=== PATIENT | female | born 1960 ===

== ENCOUNTER 2016-10-08 06:29 | Day surgery (SDC) | payer MEDICAID ==
[2016-10-08 07:20] VITALS: BMI 30.6
[2016-10-08 07:27] VITALS: O2SAT 100
[2016-10-08] MEDS ORDERED: Lactated Ringer's 500 ML IV ONE (08:00)
[2016-10-08] MEDS ORDERED: Midazolam 2 MG/2 ML VIAL ONE (08:15)
[2016-10-08] MEDS ORDERED: Propofol 10 mg/ml Inj (20 ML) ONE (08:15)
[2016-10-08 08:44] VITALS: TEMP 97.3
[2016-10-08 09:28] VITALS: BP 116/70; PULSE 60; RESP 15
== END 2016-10-08 09:25 | disposition home or self-care (01) ==
LOC: C.ENDO 06:29
PROVIDERS: ATTEND Internal Medicine Gastroenterology
DX: D12.0 Benign neoplasm of cecum (principal); D12.2 Benign neoplasm of ascending colon; K64.8 Other hemorrhoids; K57.30 Diverticulosis of large intestine without perforation or abscess without bleeding; Z86.010 Personal history of colon polyps; R10.13 Epigastric pain; K44.9 Diaphragmatic hernia without obstruction or gangrene; K31.9 Disease of stomach and duodenum, unspecified
CPT/HCPCS: 43239; 45380; 88305; J2250; J2704; J7120

== ENCOUNTER 2017-01-03 13:25 | Emergency (ER) | payer MEDICAID ==
[2017-01-03 13:25] VITALS: BMI 30.6
[2017-01-03 13:39] VITALS: RESP 16; TEMP 97.5; O2SAT 98
[2017-01-03 14:04] LABS: SQUAMOUS EPITHIAL 1 /hpf (0-5); URINE BILIRUBIN NEGATIVE (NEGATIVE); URINE BLOOD NEGATIVE (NEGATIVE); URINE CLARITY Clear (Clear); URINE COLOR Straw (YELLOW); URINE GLUCOSE (UA) NORMAL (Normal); URINE LEUKOCYTE ESTERASE NEG Leu/uL (Negative); URINE NITRATE NEGATIVE (NEGATIVE); URINE PROTEIN NEGATIVE (NEGATIVE); URINE UROBILINOGEN NORMAL mg/dL (0.2-1.0)
--- NOTE | 2017-01-03 14:37 | C.PDOC ---
History Of Present Illness 56 y/o female presents to the ED with complaints of irritation and swelling to left lower eyelid. Pt denies discharge from the area, decrease in vision, or foreign body. Doesn't wear contacts or glasses. Pt also complaining of urinary frequency and dysuria and wants to be evaluated for UTI. Denies fever, abdominal pain, back pain, vomiting or any other complaints. Time Seen by Provider: 01/03/17 13:56 Chief Complaint (Nursing): Eye Problem History Per: Patient History/Exam Limitations: no limitations Onset/Duration Of Symptoms: Days Current Symptoms Are (Timing): Still Present Injury To Eye?: No Severity: Mild Wears Contact Lens?: No Associated Symptoms: denies: Decreased Vision, FB Sensation, Discharge From Eye Recent travel outside of the [place]: No Past Medical History Reviewed: Historical Data, Nursing Documentation, Vital Signs Vital Signs: Last Vital Signs Temp 97.5 F L 01/03/17 13:35 Pulse 88 01/03/17 15:00 Resp 16 01/03/17 15:00 BP 136/85 01/03/17 15:00 Pulse Ox 98 01/03/17 15:06 - Medical History PMH: Anxiety ("NERVES"), Arthritis (KNEES), Asthma, Bronchitis, COPD (MILD), Diabetes, Diverticulitis, HTN, Hypercholesterolemia, Hyperlipidemia Surgical History: Endoscopy Family History: States: Unknown Family Hx, Hypertension - Social History Hx Tobacco Use: No Hx Alcohol Use: No Hx Substance Use: No - Immunization History Hx Tetanus Toxoid Vaccination: No Hx Influenza Vaccination: No Hx Pneumococcal Vaccination: No Review Of Systems Except As Marked, All Systems Reviewed And Found Negative. Constitutional: Negative for: Fever, Chills Eyes: Positive for: Eyelid Inflammation (left lower), Other (no discharge). Negative for: Vision Change Gastrointestinal: Negative for: Vomiting, Abdominal Pain Genitourinary: Positive for: Dysuria, Frequency Musculoskeletal: Negative for: Back Pain Physical Exam - Physical Exam Appears: Non-toxic, No Acute Distress Skin: Warm, Dry, No Rash Head: Atraumatic, Normacephalic Eye(s): bilateral: PERRL, EOMI, left: Other (Let eye mildly injected, stye noted to left lower eyelid) Ear(s): Bilateral: Normal Nose: Normal Chest: Symmetrical Cardiovascular: Rhythm Regular, No Murmur Respiratory: Normal Breath Sounds, No Rales, No Rhonchi, No Wheezing Gastrointestinal/Abdominal: Normal Exam, Soft, No Tenderness Back: Normal Inspection, No CVA Tenderness Extremity: Normal ROM Extremity: Bilateral: Atraumatic Neurological/Psych: Oriented x3, Normal Speech, Normal Cognition ED Course And Treatment O2 Sat by Pulse Oximetry: 98 (room air) Pulse Ox Interpretation: Normal Medical Decision Making Medical Decision Makin yo F c/o L lower eye lid swelling and irritation x 1 day, also reports of urinary frequency and dysuria. Plan: - FS - UA - Urine cx UA is (-), urine cx sent. FS 88. Pt given Rx tobramycin opth oint, was advised to f/u with pmd in 1-2 days without fail for re-evaluation, instructed to return to the ER at any time for any new or worsening symptoms. Pt verbalize understanding of instructions, given the opportunity to ask any questions. Disposition - Disposition Disposition: HOME/ ROUTINE Disposition Time: 14:35 Condition: STABLE Prescriptions: Tobramycin 0.3% [Tobrex 0.3% Ophth Oint] 3.5 appl OS BID #1 tube Instructions: Stye (ED), Dysuria (ED) Forms: [employer] Print Language: DIVEHI - Clinical Impression Clinical Impression: Stye, Urinary frequency - PA / MEDICAL ASSISTANT PRN / Resident Statement MD/DO has reviewed & agrees with the documentation as recorded. - Scribe Statement The provider has reviewed the documentation as recorded by the Scribe Garfield Lawrence All medical record entries made by the Scribe were at my direction and personally dictated by me. I have reviewed the chart and agree that the record accurately reflects my personal performance of the history, physical exam, medical decision making, and the department course for this patient. I have also personally directed, reviewed, and agree with the discharge instructions and disposition.
[2017-01-03 15:00] VITALS: BP 136/85; PULSE 88
== END 2017-01-03 15:00 | disposition home or self-care (01) ==
LOC: C.ER 13:25
DX: H00.015 Hordeolum externum left lower eyelid (principal); R35.0 Frequency of micturition

== ENCOUNTER 2017-07-05 10:07 | Emergency (ER) | payer MEDICAID ==
[2017-07-05 10:13] VITALS: BMI 31.8
[2017-07-05 10:17] VITALS: BP 138/83; PULSE 69; RESP 18; TEMP 97.8; O2SAT 96
[2017-07-05 10:47] LABS: SQUAMOUS EPITHIAL 1 /hpf (0-5); URINE BILIRUBIN NEGATIVE (NEGATIVE); URINE BLOOD NEGATIVE (NEGATIVE); URINE CLARITY Clear (Clear); URINE COLOR Yellow (YELLOW); URINE GLUCOSE (UA) NORMAL (Normal); URINE LEUKOCYTE ESTERASE NEG Leu/uL (Negative); URINE NITRATE NEGATIVE (NEGATIVE); URINE PROTEIN NEGATIVE (NEGATIVE); URINE UROBILINOGEN NORMAL mg/dL (0.2-1.0)
--- NOTE | 2017-07-05 11:52 | C.PDOC ---
Time Seen by Provider: 07/05/17 10:51 Chief Complaint (Nursing): Female Genitourinary History Per: Patient Onset/Duration Of Symptoms: Days (about 1 week) Current Symptoms Are (Timing): Still Present Severity: Moderate Quality Of Discomfort: Burning Associated Symptoms: Urinary Symptoms Alleviating Factors: None Additional History Per: Prior Records Abnormal Vaginal Bleeding: No Past Medical History Reviewed: Historical Data, Nursing Documentation, Vital Signs Vital Signs: Last Vital Signs Temp 97.8 F 07/05/17 10:11 Pulse 69 07/05/17 10:11 Resp 18 07/05/17 10:11 BP 138/83 07/05/17 10:11 Pulse Ox 96 07/05/17 10:11 - Medical History PMH: Arthritis (KNEES), Asthma, Bronchitis, COPD (MILD), Diabetes, Diverticulitis, HTN, Hypercholesterolemia, Hyperlipidemia Comment Only: Anxiety ("NERVES") Surgical History: Endoscopy Family History: States: Unknown Family Hx, Hypertension - Social History Hx Tobacco Use: No Hx Alcohol Use: No Hx Substance Use: No - Immunization History Hx Tetanus Toxoid Vaccination: No Hx Influenza Vaccination: Yes Hx Pneumococcal Vaccination: No Review Of Systems Except As Marked, All Systems Reviewed And Found Negative. Constitutional: Negative for: Fever, Weakness Cardiovascular: Negative for: Chest Pain Respiratory: Negative for: Shortness of Breath Gastrointestinal: Negative for: Vomiting Genitourinary: Positive for: Dysuria, Frequency, Vaginal Discharge, Pelvic Pain. Negative for: Vaginal Bleeding Musculoskeletal: Negative for: Neck Pain Skin: Negative for: Rash Neurological: Negative for: Weakness, Numbness Physical Exam - Physical Exam Appears: Non-toxic, No Acute Distress Skin: Normal Color, Warm, Dry, No Rash Head: Atraumatic, Normacephalic Eye(s): bilateral: Normal Inspection, PERRL, EOMI Neck: Normal ROM, Supple Cardiovascular: Rhythm Regular Respiratory: Normal Breath Sounds, No Accessory Muscle Use Gastrointestinal/Abdominal: Soft, Tenderness (suprapubic), No Guarding, No Rebound Back: No CVA Tenderness Pelvic: No Vaginal Bleeding, No Vaginal Discharge, Cervical Motion Tenderness ( mild), Other (Cervix slightly friable) Extremity: Normal ROM Neurological/Psych: Oriented x3, Normal Motor, Normal Sensation ED Course And Treatment - Laboratory Results Interpretation Of Abnormal: Urinalysis WNL. O2 Sat by Pulse Oximetry: 96 Pulse Ox Interpretation: Normal Medical Decision Making Medical Decision Making: Pt is allergic to Penicillins, can not give Rocephin. 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 Disposition Counseled Patient/Family Regarding: Studies Performed, Diagnosis, Need For Followup, Rx Given - Disposition Referrals: Anil Sun MD [Staff Provider] - Disposition: HOME/ ROUTINE Disposition Time: 11:53 Condition: STABLE Additional Instructions: Follow up with your Biodiesel Plant Operations Engineer within 1 week for further evaluation and treatment. Return to the ER if you develop fever, vomiting, worsening of symptoms or if you have any other concerns. Prescriptions: Ciprofloxacin [Cipro] 1 tab PO BID #14 tab Instructions: Pelvic Inflammatory Disease (ED) Forms: [facility] [employer] (Malay) Print Language: CITIZEN OF [place] - Clinical Impression Clinical Impression: Pelvic pain in female, Urinary symptom or sign
== END 2017-07-05 12:00 | disposition home or self-care (01) ==
LOC: C.ER 10:07
DX: R10.2 Pelvic and perineal pain (principal)

== ENCOUNTER 2017-07-24 18:34 | Emergency (ER) | payer MEDICAID ==
[2017-07-24 18:34] VITALS: BMI 30.6
[2017-07-24 19:59] VITALS: BP 158/90; PULSE 87; RESP 16; TEMP 98.5; O2SAT 98
[2017-07-24] MEDS ORDERED: Albuterol 0.083% Inhal Sol (2.5 mg/3 mL) UD ONE (21:06)
[2017-07-24] MEDS: Albuterol 0.083% Inhal Sol (2.5 mg/3 mL) UD INH SCH ×2 (21:11→21:35)
--- NOTE | 2017-07-24 22:19 | C.PDOC ---
History Of Present Illness 57 year old female presents to the ED c/o intermittent episodes of cough, flu like symptoms for the past 2 weeks. Patient went to see her PMD who prescribed her some nebulizer solutions and cough medicine. Patient states that at night when she goes to sleep she get cough fits that makes her feel SOB. Patient denies fever, chills, nausea, vomit, diarrhea, sick contacts, recent travel. Time Seen by Provider: 07/24/17 20:30 Chief Complaint (Nursing): Cough, Cold, Congestion History Per: Patient History/Exam Limitations: no limitations Onset/Duration Of Symptoms: Days Current Symptoms Are (Timing): Still Present Location Of Pain: Throat Sick Contacts (Context): None Associated Symptoms: Fever, Cough, Myalgias Ear Symptoms: Bilateral: None Recent travel outside of the [place]: No Additional History Per: Patient Past Medical History Reviewed: Historical Data, Nursing Documentation, Vital Signs Vital Signs: Last Vital Signs Temp 98.5 F 07/24/17 19:56 Pulse 87 07/24/17 19:56 Resp 16 07/24/17 19:56 BP 158/90 H 07/24/17 19:56 Pulse Ox 98 07/24/17 22:29 - Medical History PMH: Arthritis (KNEES), Asthma, Bronchitis, COPD (MILD), Diabetes, Diverticulitis, HTN, Hypercholesterolemia, Hyperlipidemia Comment Only: Anxiety ("NERVES") Surgical History: Endoscopy Family History: States: Unknown Family Hx, Hypertension - Social History Hx Tobacco Use: No Hx Alcohol Use: No Hx Substance Use: No - Immunization History Hx Tetanus Toxoid Vaccination: No Hx Influenza Vaccination: Yes Hx Pneumococcal Vaccination: No Review Of Systems Constitutional: Positive for: Fever. Negative for: Chills ENT: Negative for: Nose Discharge, Throat Pain, Throat Swelling Cardiovascular: Negative for: Chest Pain Respiratory: Positive for: Cough, Shortness of Breath Gastrointestinal: Negative for: Nausea, Vomiting, Abdominal Pain Genitourinary: Negative for: Dysuria Musculoskeletal: Negative for: Back Pain Skin: Negative for: Rash Neurological: Negative for: Weakness, Numbness, Headache Physical Exam - Physical Exam Appears: Non-toxic, No Acute Distress Skin: Normal Color, Warm, Dry Head: Atraumatic, Normacephalic Eye(s): bilateral: Normal Inspection Ear(s): Bilateral: Normal Nose: No Discharge, No Deformity Oral Mucosa: Moist Neck: Normal ROM, Supple Chest: Symmetrical Cardiovascular: Rhythm Regular, No Murmur Respiratory: Decreased Breath Sounds (minimal), Wheezing (expiratory) Gastrointestinal/Abdominal: Soft, No Tenderness, No Guarding, No Rebound Extremity: Normal ROM, No Pedal Edema, No Calf Tenderness, No Deformity, No Swelling Neurological/Psych: Oriented x3, Normal Speech, Normal Cognition Gait: Steady ED Course And Treatment O2 Sat by Pulse Oximetry: 98 (On RA) Pulse Ox Interpretation: Normal - Radiology CXR: Viewed By Me, Read By Radiologist CXR Interpretation: Yes: Other (no changes from prior). No: No Acute Disease, Infiltrates Progress Note: Plan: -CXR. -Albuterol 2.5 mg INH. -Benadryl 50 mg PO. - Prednisone 60 mg PO. -Nebulizer treament. Patient is resting comfortably, and is in no acute distress. Patient was instructed to follow up with PMD in 1-2 days for further evaluation. Disposition Counseled Patient/Family Regarding: Diagnosis, Need For Followup, Rx Given - Disposition Referrals: Anil Sun MD [Staff Provider] - Disposition: HOME/ ROUTINE Disposition Time: 22:16 Condition: STABLE Additional Instructions: Increase PO fluids Take all meds as prescribed D/c phenergan /codeine for cough ( NO evelina ) Follow up with Dr Sun Continue albuterol nebs Return to ER if worse Prescriptions: Benzonatate [Tessalon Perles] 100 mg PO TID #20 sgl Cetirizine HCl [Zyrtec] 10 mg PO DAILY #20 capsule predniSONE [Prednisone] 40 mg PO DAILY #8 tab Instructions: Upper Respiratory Infection (ED) Forms: [employer] ([place] Citizen) Print Language: SLOVAK - Clinical Impression Clinical Impression: Upper respiratory infection - PA / TOOL POLISHER / Resident Statement MD/DO has reviewed & agrees with the documentation as recorded. - Scribe Statement The provider has reviewed the documentation as recorded by the Scribe Heath Murphy All medical record entries made by the Scribe were at my direction and personally dictated by me. I have reviewed the chart and agree that the record accurately reflects my personal performance of the history, physical exam, medical decision making, and the department course for this patient. I have also personally directed, reviewed, and agree with the discharge instructions and disposition.
--- NOTE | 2017-07-24 22:21 | C.PDOC ---
History Of Present Illness 57 year old female presents to the ED c/o intermittent episodes of cough, flu like symptoms for the past 2 weeks. Patient went to see her PMD who prescribed her some nebulizer solutions and cough medicine. Patient states that at night when she goes to sleep she get cough fits that makes her feel SOB. Patient denies fever, chills, nausea, vomit, diarrhea, sick contacts, recent travel. Time Seen by Provider: 07/24/17 20:30 Chief Complaint (Nursing): Cough, Cold, Congestion Past Medical History Vital Signs: Last Vital Signs Temp 98.5 F 07/24/17 19:56 Pulse 87 07/24/17 19:56 Resp 16 07/24/17 19:56 BP 158/90 H 07/24/17 19:56 Pulse Ox 98 07/24/17 19:56 - Medical History PMH: Arthritis (KNEES), Asthma, Bronchitis, COPD (MILD), Diabetes, Diverticulitis, HTN, Hypercholesterolemia, Hyperlipidemia Comment Only: Anxiety ("NERVES") Surgical History: Endoscopy Family History: States: Unknown Family Hx, Hypertension - Social History Hx Tobacco Use: No Hx Alcohol Use: No Hx Substance Use: No - Immunization History Hx Tetanus Toxoid Vaccination: No Hx Influenza Vaccination: Yes Hx Pneumococcal Vaccination: No ED Course And Treatment O2 Sat by Pulse Oximetry: 98 Disposition - Disposition Forms: [employer] (Welsh)
--- NOTE | 2017-07-25 08:39 | RAD ---
Chest x-ray two views History: Cough. Comparison: 07/05/2014 Findings: No focal infiltrate or effusion. Heart size within normal limits. Mammilated and elevated right hemidiaphragm. Impression: No focal infiltrate or effusion.
== END 2017-07-24 22:26 | disposition home or self-care (01) ==
LOC: C.ER 18:34
DX: J06.9 Acute upper respiratory infection, unspecified (principal)

== ENCOUNTER 2017-09-03 03:48 | Inpatient (IN) | payer MEDICAID, OTHER ==
[2017-09-03 03:49] VITALS: BMI 30.6
--- NOTE | 2017-09-03 04:59 | C.PDOC ---
History Of Present Illness 57 year old female presents to the ER stating that she feels like she has mice crawling all over her. Denies other complaints. Chief Complaint (Nursing): Psychiatric Evaluation History Per: Patient History/Exam Limitations: no limitations Onset/Duration Of Symptoms: Days Current Symptoms Are (Timing): Still Present Suicide/Self Injury Attempted (Context): None Involuntary Hold By: None Recent travel outside of the [place]: No Past Medical History Reviewed: Historical Data, Nursing Documentation, Vital Signs Vital Signs: Last Vital Signs Temp 97.9 F 09/03/17 04:00 Pulse 117 H 09/03/17 04:00 Resp 20 09/03/17 04:00 BP 191/89 H 09/03/17 04:00 Pulse Ox 96 09/03/17 06:13 - Medical History PMH: Arthritis (KNEES), Asthma, Bronchitis, COPD (MILD), Diabetes, Diverticulitis, HTN, Hypercholesterolemia, Hyperlipidemia Comment Only: Anxiety ("NERVES") Surgical History: Endoscopy Family History: States: Hypertension - Social History Hx Tobacco Use: No Hx Alcohol Use: No Hx Substance Use: No - Immunization History Hx Tetanus Toxoid Vaccination: No Hx Influenza Vaccination: Yes Hx Pneumococcal Vaccination: No Review Of Systems Constitutional: Negative for: Fever, Chills Cardiovascular: Negative for: Chest Pain, Palpitations Respiratory: Negative for: Cough, Shortness of Breath Gastrointestinal: Negative for: Nausea, Vomiting, Abdominal Pain, Diarrhea Physical Exam - Physical Exam Appears: Non-toxic, No Acute Distress Skin: Normal Color, Warm, Dry Head: Atraumatic, Normacephalic Eye(s): bilateral: Normal Inspection Oral Mucosa: Moist Chest: Symmetrical, No Tenderness Cardiovascular: Rhythm Regular Respiratory: Normal Breath Sounds, No Rales, No Rhonchi, No Wheezing Gastrointestinal/Abdominal: Soft, No Tenderness Neurological/Psych: Oriented x3, Normal Speech ED Course And Treatment - Laboratory Results Result Diagrams: 09/03/17 05:01 09/03/17 05:01 O2 Sat by Pulse Oximetry: 96 (Room air) Pulse Ox Interpretation: Normal Progress Note: Repeat blood pressure is 154/72. Medical Decision Making Medical Decision Making: Blood work and urinalysis ordered. Xanax administered. Disposition Discussed With : Angelina Handy Doctor Will See Patient In The: Hospital Counseled Patient/Family Regarding: Diagnosis - Disposition Disposition: HOSPITALIZED Disposition Time: 06:14 Condition: STABLE Forms: [facility] ([place]ese) - POA Present On Arrival: None - Clinical Impression Clinical Impression: Schizophrenia, unspecified, Benzodiazepine withdrawal - Scribe Statement The provider has reviewed the documentation as recorded by the Scribwillie Hurt All medical record entries made by the Scribe were at my direction and personally dictated by me. I have reviewed the chart and agree that the record accurately reflects my personal performance of the history, physical exam, medical decision making, and the department course for this patient. I have also personally directed, reviewed, and agree with the discharge instructions and disposition.
[2017-09-03 05:06] LABS: BASO # 0.1 K/uL (0.0-0.2); BASO % 0.9 % (0.0-2.0); EOS # 0.1 K/uL (0.0-0.7); EOS % 0.9 % (0.0-4.0); HEMOGLOBIN 12.1 g/dL (11.0-16.0); LYMPH # 2.2 K/uL (1.0-4.3); LYMPH % 29.6 % (20.0-40.0); MEAN CELL VOLUME 85.4 fL (81.0-99.0); MEAN CORPUSCULAR HEMOGLOBIN 28.7 pg (27.0-31.0); MEAN CORPUSCULAR HGB CONC 33.7 g/dL (33.0-37.0); MONO # 0.7 K/uL (0.0-0.8); MONO % 9.4 % (0.0-10.0); NEUT # 4.4 K/uL (1.8-7.0); NEUT % 59.2 % (50.0-75.0); RBC 4.21 Mil/uL (3.80-5.20); RED CELL DISTRIBUTION WIDTH 13.8 % (11.5-14.5); WHITE BLOOD COUNT 7.4 K/uL (4.8-10.8)
[2017-09-03 05:25] LABS: ALB/GLOB RATIO 1.1 (1.0-2.1); ALBUMIN 4.2 g/dL (3.5-5.0); ALT/SGPT 55 U/L (9-52); AST/SGOT 37 U/L (14-36); BARBITURATES, UR NEGATIVE (NEGATIVE); BLOOD UREA NITROGEN 25 mg/dL (7-17); CALCIUM 9.3 mg/dl (8.6-10.4); GFR AFRICAN-AMERICAN > 60; GFR NON-AFRICAN AMERICAN > 60; OPIATES, UR NEGATIVE (NEGATIVE); PHENCYCLIDINE, UR NEGATIVE (NEGATIVE)
[2017-09-03 05:35] LABS: SQUAMOUS EPITHIAL 2 /hpf (0-5); URINE BACTERIA RARE (<OCC); URINE BILIRUBIN NEGATIVE (NEGATIVE); URINE BLOOD NEGATIVE (NEGATIVE); URINE CLARITY Hazy (Clear); URINE COLOR Yellow (YELLOW); URINE GLUCOSE (UA) NORMAL (Normal); URINE LEUKOCYTE ESTERASE NEG Leu/uL (Negative); URINE PROTEIN NEGATIVE (NEGATIVE); URINE UROBILINOGEN NORMAL mg/dL (0.2-1.0)
[2017-09-03] MEDS ORDERED: Potassium Chloride 20 mEq/15 ml LIQ UD PO STA (05:45)
[2017-09-03] MEDS ORDERED: Potassium Chloride 20 mEq ER Tab PO ONE (05:51)
[2017-09-03 06:29] LABS: BENZODIAZEPINES, UR POSITIVE (NEGATIVE)
--- NOTE | 2017-09-03 08:16 | PCM.BM ---
<Estephania Viramontes - Last Filed: 09/03/17 08:14> Treatment Plan Problems - Problems identified on initial assessmt Anxiety Date Initiated: 09/03/17 Time Initiated: 08:14 Assessment reference: NA Status: Active Auditory Hallucination Date Initiated: 09/03/17 Time Initiated: 08:14 Assessment reference: NA Status: Active Treatment assets and liabiliti Patient Assests: adapts well, ADL independent, physically healthy, negotiates basic needs Patient Liabilities: live alone (Lives with ), medical problems (Asthma, HTN, Dizziness) - Milieu Protocol Maintain good personal hygiene: daily Encourage regular showers, daily Remind patient to perform daily oral care, daily Assist patient to perform ADL's (Self) Maintain personal safety: every shift Educate patient to report safety concerns to staff, every shift Monitor environment for contraband/sharps Medication safety: Monitor for expected outcome, potential side effects: every shift, Assess barriers to learning: every shift, Assess readiness for medication education: every shift <Kasandra Corral - Last Filed: 09/06/17 11:01> - Diagnosis (1) Bipolar disorder, curr episode mixed, severe, with psychotic features Status: Acute Interventions: 09/06/17 11:01 * Assess/adjust medications daily and /or as needed * See patient on an individual basis 7x/week to assess level of manic behaviors and stability * Discuss risks, benefits, side effects and alternatives of medications * <Kelle Pisano - Last Filed: 09/06/17 11:06> Family Contact Family involvement: Famliy/SO not involved Family contact: Patient declines to allow family contact at present - Goals for Treatment Patient goals for treatment: "I want to go home." Discharge/Continuing Care - Education Needs Education Needs: Patient Medication, Patient Coping Skills - Discharge Discharge Criteria: Tolerates medication w/o severe side effects, Reduction of target symptoms Discharge to:: Home - Treatment Team Participation Discussed with Family/SO: No Was Patient/Family/SO present at Treatment Team Meeting: Yes
[2017-09-03] MEDS: Multiple Vitamins Tab PO SCH (10:40)
--- NOTE | 2017-09-03 10:41 | PCM.PSYCH ---
Initial Psychiatric Evaluation - Initial Psychiatric Evaluation Type of Admission: Voluntary Legal Status: Capacity Chief Complaint (in patient's own words): I was feeling anxious.' History of Present Illness and Precipitating Events: 57-year-old female, who lives at home with her , came to the ED on her own because she hasn't been able to sleep well lately, "not sleeping for 5-6 days". Patient appeared somewhat disorganized and internally preoccupied throughout the interview. She was responding to the internal stimuli and was smiling inappropriately during the interview. She reports that she has been on Xanax to help her sleep for an unknown period of time but states that they haven't been working lately. "I was not feeling good in the house;" I was not taking my pills (Xanax 2mg) for sleep;" They don't do nothing for my body no more;" I'm not sleeping so well;" I'm scared to be in the house alone;" I get like nervous; " Then I think too much;" I hear like somebody talking to you". She als reports [facility]H seeing shadows and apears paranoid and delusional during the interview. Patient reports racing thoughts, flight of ideas and poor sleep. She reports that she would frequently wake up in the middle of the night and start cooking because "I like to cook". Patient reports a decreased appetite, and poor concentration. Patient does not drink or use any illicit drugs, and did not specify whether she has any suicidal or homicidal ideation. Patient smiling inappropriately throughout history gathering. She denies any h/o inpatient psychiatric hospitalizations and denies any h/o follow up with a psychiatrist. PMH: None reported Current Medications: Active Medications Generic Name Dose Route Start Last Admin Trade Name Freq PRN Reason Stop Dose Admin Hydroxyzine HCl 25 mg 09/03/17 07:53 Atarax PO Q6H PRN Anxiety Multivitamins 1 tab 09/03/17 10:00 09/03/17 10:40 Hexavitamin PO Not Given DAILY LATANYA Past Psychiatric History - Past Psychiatric History Previous Treatment History: None Pertinent Medical Hx (Current Medical&Sleep Prob, Allergies): Allergies Allergy/AdvReac Type Severity Reaction Status Date / Time Penicillins Allergy Severe ANAPHYLAXIS Verified 09/03/17 04:05 Alprazolam [Xanax] 1 tab PO HS 11/08/15 Ergocalciferol (Vitamin D2) [Vitamin D2] 1 tab PO QWK 10/08/16 Losartan/Hydrochlorothiazide [Losartan-Hctz 50-12.5 mg Tab] 1 tab PO DAILY 10/08 Review of Systems - Review of Systems All systems: reviewed and no additional remarkable complaints except - Psychiatric Psychiatric: Anxiety, Auditory Hallucinations, Irritability, Mood Swings, Paranoia, Visual Hallucinations Mental Status Examination - Personal Presentation Personal Presentation: Looks stated age - Affect Affect: Broad, Blunted - Motor Activity Motor Activity: Psychomotor Agitation - Reliability in Providing Information Reliability in Providing Information: Poor, due to alteration in thoughts, Poor , due to altered mood - Speech Speech: Disorganized, Irrelevant - Mood Mood: Anxious - Formal Thought Process Formal Thought Process: Hallucinations, Delusions, Paranoia, Loosening of associations, Flight of ideas - Hallucinations/Delusions Hallucinations: Visual, Auditory Delusions: Persecution - Obsessions/Compulsions Obsessions: No Compulsions: No - Cognitive Functions Orientation: Person, Place, Situation, Time Sensorium: Alert Attention/Concentration: Attentive Abstract Thinking: [place] Estimate of Intelligence: Below average Judgement: Imparied, as evidence by: Poor judgement, Imparied, as evidence by: Lack of insight into illness - Risk Risk: Diminished functioning - Strength & Assets Inventory Strength & Assets Inventory: Family support DSM 5 DX - DSM 5 DSM 5 Diagnosis: Bipolar disorder mixed severe with psychotic features Sedative / Hypnotic use disorder severe - Recommended/Plan of Treatment Treatment Recommendations and Plan of Treatment: Bipolar disorder mixed severe with psychotic features -CBT -Psychoeducation -Supportive therapy, group therapy, individual therapy -Risperdal 0.5 mg by mouth twice a day -Cogentin 0.5 mg PO BID -Trazodone 50 mg by mouth daily at bedtime Sedative / Hypnotic use disorder severe -Psychoeducation -Supportive therapy, individual therapy -Ativan 1 mg PO Q 6hr prn -Use TX for abstinence - Smoking Cessation Smoking Cessation Initiated: No
[2017-09-03] MEDS: Divalproex 250 mg DR Tab PO SCH (17:32)
[2017-09-04] MEDS: Divalproex 250 mg DR Tab PO SCH ×2 (10:20→17:35)
[2017-09-04] MEDS: Multiple Vitamins Tab PO SCH (10:20)
--- NOTE | 2017-09-04 10:54 | PCM.PYCHPN ---
Psychiatric Progress Note - Psychiatric Progress Note Patient seen today, length of contact: 15 min Patient Chief Complaint: I was feeling anxious.' Problems Identified/Issues Discussed: Patient seen and evaluated, chart reviewed and discussed with the nurse. Patient remained disorganized and internally preoccupied. Although she reports improvement in her mood and requesting to go home, she still appears paranoid and delusional. She appears disheveled and remained isolated, and withdrawn. Patient is compliant with medications and denies any side effects. She need more time to stabilize. Support and psychoeducation given. Medication Change: Yes (start depakote) Medical Record Reviewed: Yes Mental Status Examination - Cognitive Function Orientation: Person, Place, Situation, Time Memory: Intact Attention: Poor Concentration: Poor Association: Loose Fund of Knowledge: Poor - Mood Mood: Anxious - Affect Affect: Broad, Blunted - Formal Thought Process Formal Thought Process: Hallucinations, Delusions, Paranoia, Loosening of associations, Flight of ideas - Suicidal Ideation Suicidal Ideation: No - Homicidal Ideation Homicidal Ideation: No Goal/Treatment Plan - Goal/Treatment Plan Need for Continued Stay: Severe depression anxiety, Severe functional impairment Progress Toward Problem(s) and Goals/Treatment Plan: Bipolar disorder mixed severe with psychotic features -CBT -Psychoeducation -Supportive therapy, group therapy, individual therapy -Risperdal 0.5 mg by mouth twice a day -Cogentin 0.5 mg PO BID -Trazodone 50 mg by mouth daily at bedtime -Depakote 250 mg PO BID Sedative / Hypnotic use disorder severe -Psychoeducation -Supportive therapy, individual therapy -Ativan 1 mg PO Q 6hr prn -Use PR for abstinence - Smoking Cessation Smoking Cessation Initiated: No
[2017-09-04] MEDS: Magnesium Hydroxide Susp 30 ml UD PO PRN ×2 (10:56→17:35)
[2017-09-05] MEDS: Divalproex 250 mg DR Tab PO SCH ×2 (09:53→17:23)
[2017-09-05] MEDS: Magnesium Hydroxide Susp 30 ml UD PO PRN (09:53)
[2017-09-05] MEDS: Multiple Vitamins Tab PO SCH (10:02)
--- NOTE | 2017-09-05 13:31 | PCM.PYCHPN ---
Psychiatric Progress Note - Psychiatric Progress Note Patient seen today, length of contact: 15 min Patient Chief Complaint: I was feeling anxious.' Problems Identified/Issues Discussed: Patient seen and evaluated, chart reviewed and discussed with the nurse. As per the staff patient appears less delusional and less paranoid, as compared to before. She appears more organized and reports improvement in her mood. However she still has poor insight about her condition and she is still asking why is she getting medications. She reports improvement in sleep and appetite. She remained disheveled and unkempt. Patient is compliant with medications and denies any side effects. She need more time to stabilize. Support and psychoeducation given. Medication Change: Yes (Increase Risperdal) Medical Record Reviewed: Yes Mental Status Examination - Cognitive Function Orientation: Person, Place, Situation, Time Memory: Intact Attention: Poor Concentration: Poor Association: Loose Fund of Knowledge: Poor - Mood Mood: Anxious - Affect Affect: Broad, Blunted - Formal Thought Process Formal Thought Process: Hallucinations, Delusions, Paranoia, Loosening of associations, Flight of ideas - Suicidal Ideation Suicidal Ideation: No - Homicidal Ideation Homicidal Ideation: No Goal/Treatment Plan - Goal/Treatment Plan Need for Continued Stay: Severe depression anxiety, Severe functional impairment Progress Toward Problem(s) and Goals/Treatment Plan: Bipolar disorder mixed severe with psychotic features -CBT -Psychoeducation -Supportive therapy, group therapy, individual therapy -Risperdal 01 mg by mouth twice a day -Cogentin 0.5 mg PO BID -Trazodone 50 mg by mouth daily at bedtime -Depakote 250 mg PO BID Sedative / Hypnotic use disorder severe -Psychoeducation -Supportive therapy, individual therapy -Ativan 1 mg PO Q 6hr prn -Use IN for abstinence - Smoking Cessation Smoking Cessation Initiated: No
--- NOTE | 2017-09-05 17:54 | CARD ---
APPROVED REPORT EKG Measurement Heart [id number] <Conclusion> Normal sinus rhythm Normal ECG
[2017-09-06] MEDS: Multiple Vitamins Tab PO SCH (09:51)
[2017-09-06] MEDS: Divalproex 250 mg DR Tab PO SCH ×2 (09:52→18:14)
[2017-09-06] MEDS ORDERED: Pneumococcal 23-Valent Vaccine IM ONE (10:00)
[2017-09-06] MEDS ORDERED: Influenza Vaccine 60 mcg/0.5 mL SYR (4YR UP) IM ONE (10:00)
--- NOTE | 2017-09-06 11:00 | PCM.PYCHPN ---
Psychiatric Progress Note - Psychiatric Progress Note Patient seen today, length of contact: 15 min Patient Chief Complaint: I was feeling anxious.' Problems Identified/Issues Discussed: Patient seen and evaluated, chart reviewed and discussed with the nurse. She appears more organized and reports improvement in her mood. As per the staff patient appears less delusional and less paranoid, as compared to before. However she still has poor insight about her condition and she is still asking why is she getting medications. She reports improvement in sleep and appetite. She remained disheveled and unkempt. Patient is compliant with medications and denies any side effects. She need more time to stabilize. Support and psychoeducation given. Medication Change: No Medical Record Reviewed: Yes Mental Status Examination - Cognitive Function Orientation: Person, Place, Situation, Time Memory: Intact Attention: WNL Concentration: Poor Association: Loose Fund of Knowledge: Poor - Mood Mood: Anxious - Affect Affect: Broad, Blunted - Formal Thought Process Formal Thought Process: Delusions, Paranoia, Loosening of associations - Suicidal Ideation Suicidal Ideation: No - Homicidal Ideation Homicidal Ideation: No Goal/Treatment Plan - Goal/Treatment Plan Need for Continued Stay: Severe depression anxiety, Severe functional impairment Progress Toward Problem(s) and Goals/Treatment Plan: Bipolar disorder mixed severe with psychotic features -CBT -Psychoeducation -Supportive therapy, group therapy, individual therapy -Risperdal 1 mg by mouth twice a day -Cogentin 0.5 mg PO BID -Trazodone 50 mg by mouth daily at bedtime -Depakote 250 mg PO BID Sedative / Hypnotic use disorder severe -Psychoeducation -Supportive therapy, individual therapy -Ativan 1 mg PO Q 6hr prn -Use NH for abstinence
[2017-09-07] MEDS: Multiple Vitamins Tab PO SCH (09:35)
[2017-09-07] MEDS: Divalproex 250 mg DR Tab PO SCH ×2 (09:35→17:34)
[2017-09-08 07:13] VITALS: O2SAT 100
[2017-09-08] MEDS: Divalproex 250 mg DR Tab PO SCH ×2 (09:17→18:44)
[2017-09-08] MEDS: Multiple Vitamins Tab PO SCH (09:17)
[2017-09-09] MEDS: Divalproex 250 mg DR Tab PO SCH ×2 (10:37→17:31)
[2017-09-09] MEDS: Multiple Vitamins Tab PO SCH (10:37)
--- NOTE | 2017-09-09 13:45 | PCM.PYCHPN ---
Psychiatric Progress Note - Psychiatric Progress Note Patient seen today, length of contact: 15 minutes Patient Chief Complaint: "I feel fine, I feel better" Problems Identified/Issues Discussed: The pt is seen, chart reviewed, case discussed with staff. Support given, CBT and MT used briefly. Patient states that she feels much better today. Denies any irritability, SI/HI, visual or auditory hallucinations. No other complaints are noted. She is improving slowly and needs more time. No SEs from medications, risks discussed. After care discussed. At the time of evaluation, patient was awake alert oriented 3, no delusions, no auditory or visual hallucinations, no suicidal ideations or homicidal ideations. Medical Problems: Hypertension Diagnostic Results: Reviewed DSM 5 Symptoms Update: Improving with treatment Medication Change: No Medical Record Reviewed: Yes Mental Status Examination - Cognitive Function Orientation: Person, Place, Situation, Time Memory: Intact Attention: WNL Concentration: WNL Association: WN Fund of Knowledge: [facility] Decription of patient's judgement and insights: Fair - Mood Mood: Depressed (Less than before) - Affect Affect: Other (Appropriate) - Speech Speech: Appropriate - Formal Thought Process Formal Thought Process: No Impairment Psychotic Thoughts and Behaviors: None reported - Suicidal Ideation Suicidal Ideation: No - Homicidal Ideation Homicidal Ideation: No Goal/Treatment Plan - Goal/Treatment Plan Need for Continued Stay: Remain at risks for inpatient hospitalization, Discharge may exacerbated symptoms, Severe functional impairment Progress Toward Problem(s) and Goals/Treatment Plan: Continue medications Support and psychoeducation daily Attend groups and activities daily Patient will go to [facility] for follow-up care after discharge from the hospital. Estimated Date of D/C: 09/11/17 - Smoking Cessation Smoking Cessation Initiated: No
[2017-09-09] MEDS: Magnesium Hydroxide Susp 30 ml UD PO PRN (17:33)
[2017-09-10] MEDS: Multiple Vitamins Tab PO SCH (09:57)
[2017-09-10] MEDS: Divalproex 250 mg DR Tab PO SCH ×2 (09:57→17:06)
[2017-09-10] MEDS ORDERED: Ergocalciferol 50,000 Intl Units Cap PO SCH (10:00)
--- NOTE | 2017-09-10 12:10 | PCM.PYCHPN ---
Psychiatric Progress Note - Psychiatric Progress Note Patient seen today, length of contact: 15 minutes Patient Chief Complaint: "I feel better today" Problems Identified/Issues Discussed: The pt is seen, chart reviewed, case discussed with staff. Support given, CBT and PR used briefly. Patient slept well last night. She states that she feels much better today. Denies any irritability, SI/HI, visual or auditory hallucinations. No other complaints are noted. No SEs from medications, risks discussed. After care discussed Medical Problems: Hypertension Diagnostic Results: Reviewed DSM 5 Symptoms Update: Improving with treatment Medication Change: No Medical Record Reviewed: Yes Mental Status Examination - Cognitive Function Orientation: Person, Place, Situation, Time Memory: Intact Attention: WNL Concentration: WNL Association: [facility] Fund of Knowledge: [facility] Decription of patient's judgement and insights: Fair - Mood Mood: Neutral - Affect Affect: Other (Appropriate) - Speech Speech: Appropriate - Formal Thought Process Formal Thought Process: No Impairment Psychotic Thoughts and Behaviors: None - Suicidal Ideation Suicidal Ideation: No - Homicidal Ideation Homicidal Ideation: No Goal/Treatment Plan - Goal/Treatment Plan Need for Continued Stay: Remain at risks for inpatient hospitalization, Discharge may exacerbated symptoms, Severe functional impairment Progress Toward Problem(s) and Goals/Treatment Plan: Continue medications Support and psychoeducation daily Attend groups and activities daily Patient will go to [facility] for follow-up care after discharge from the hospital Estimated Date of D/C: 09/11/17 ([facility]) - Smoking Cessation Smoking Cessation Initiated: No
[2017-09-11 06:29] VITALS: BP 130/65; PULSE 96; RESP 16; TEMP 98.1
[2017-09-11] MEDS: Multiple Vitamins Tab PO SCH (10:04)
[2017-09-11] MEDS: Divalproex 250 mg DR Tab PO SCH (10:53)
--- NOTE | 2017-09-11 13:58 | PCM.PYCHDC ---
Mental Status Examination - Mental Status Examination Orientation: Person, Place, Situation, Time Memory: Intact Mood: Neutral Affect: Other (Appropriate) Speech: Appropriate Attention: WNL Concentration: WNL Association: WNL Fund of Knowledge: WNL Formal Thought Process: No Impairment Description of patient's judgement and insight: Fair Psychotic Thoughts and Behaviors: None Suicidal Ideation: No Current Homicidal Ideation?: No Discharge Summary - Discharge Note Reason for Hospitalization: Bipolar disorder Anxiolytics use disorder Laboratory Data: Reviewed Consultations:: List each consultation separately and include: 1. Reason for request. 2. Findings. 3. Follow-up Summary of Hospital Course include:: 1. Description of specific treatment plan utilized for patients during their course of treatmen. 2. Summarize the time- course for resolution of acute symptoms and/or regressed behaviors. 3. Describe issues identified and worked on during hospitalization. 4. Describe medication utilized. 5. Describe medical problems identified and treated. 6. Reassessment of suicide risk Summary of Hospital Course: 57-year-old female, who lives at home with her , came to the ED on her own because she hasn't been able to sleep well lately, "not sleeping for 5-6 days". Patient appeared somewhat disorganized and internally preoccupied throughout the interview. She was responding to the internal stimuli and was smiling inappropriately during the interview. She reports that she has been on Xanax to help her sleep for an unknown period of time but states that they haven't been working lately. "I was not feeling good in the house;" I was not taking my pills (Xanax 2mg) for sleep;" They don't do nothing for my body no more;" I'm not sleeping so well;" I'm scared to be in the house alone;" I get like nervous; " Then I think too much;" I hear like somebody talking to you". She als reports [facility] seeing shadows and apears paranoid and delusional during the interview. Patient reports racing thoughts, flight of ideas and poor sleep. She reports that she would frequently wake up in the middle of the night and start cooking because "I like to cook". Patient reports a decreased appetite, and poor concentration. Patient does not drink or use any illicit drugs, and did not specify whether she has any suicidal or homicidal ideation. Patient smiling inappropriately throughout history gathering. She denies any h/o inpatient psychiatric hospitalizations and denies any h/o follow up with a psychiatrist. During her stay in the hospital patient was treated with Depakote, Risperdal, Cogentin and trazodone. Patient also got other when necessary medications. We will work treatment and attending groups and other activities on the unit, patient started feeling better. Today patient was stable and ready for discharge from the hospital. At the time of evaluation and discharge, patient was awake alert oriented 3, had no delusions, no auditory or visual hallucinations, no suicidal ideations or homicidal ideations. Patient was discharged in a stable condition. Patient will have follow-up at [facility] for follow-up care. - Final Diagnosis (DSM 5) Condition upon Discharge: STABLE Disposition: HOME/ ROUTINE Follow-up Treatment Plan: Patient will go to [facility] for follow-up care after discharge from the hospital Prescriptions/Medication Reconciliation: Benztropine [Cogentin] 0.5 mg PO BID #60 tab Divalproex [Depakote DR] 250 mg PO BID #60 tcp Ergocalciferol (Vitamin D2) [Vitamin D2] 1 tab PO QWK #14 capsule risperiDONE [RisperDAL Tab] 1 mg PO BID #60 tab traZODone [Desyrel] 50 mg PO HS #30 tab - Smoking Cessation Smoking Cessation Medication prescribed: No - Antipsychotic Medications Pt discharged on 2 or more routine antipsychotic medications: No
== END 2017-09-11 11:54 | disposition home or self-care (01) | DRG 430 ==
LOC: C.ER 03:48 → C.5E 06:17
PROVIDERS: ADMIT Psychiatry & Neurology Psychiatry; ATTEND Psychiatry & Neurology Psychiatry
PROC: GZ3ZZZZ Medication Management (ICD-10-PCS; principal; 2017-09-03)
PROC: GZHZZZZ Group Psychotherapy (ICD-10-PCS; 2017-09-03)
PROC: GZ56ZZZ Individual Psychotherapy, Supportive (ICD-10-PCS; 2017-09-03)
PROC: HZ89ZZZ Medication Management for Substance Abuse Treatment, Other Replacement Medication (ICD-10-PCS; 2017-09-03)
PROC: HZ56ZZZ Individual Psychotherapy for Substance Abuse Treatment, Psychoeducation (ICD-10-PCS; 2017-09-03)
PROC: HZ59ZZZ Individual Psychotherapy for Substance Abuse Treatment, Supportive (ICD-10-PCS; 2017-09-03)
DX: F31.64 Bipolar disorder, current episode mixed, severe, with psychotic features (principal); F13.239 Sedative, hypnotic or anxiolytic dependence with withdrawal, unspecified; E11.9 Type 2 diabetes mellitus without complications; J44.9 Chronic obstructive pulmonary disease, unspecified; I10 Essential (primary) hypertension; E78.00 Pure hypercholesterolemia, unspecified; E78.5 Hyperlipidemia, unspecified; M17.0 Bilateral primary osteoarthritis of knee; Z79.899 Other long term (current) drug therapy

== ENCOUNTER 2017-11-22 11:06 | Emergency (ER) | payer MEDICAID, OTHER ==
[2017-11-22 11:06] VITALS: BMI 30.6
[2017-11-22] MEDS ORDERED: Albuterol 0.083% Inhal Sol (2.5 mg/3 mL) UD IH STA (11:35)
[2017-11-22] MEDS ORDERED: Albuterol 0.083% Inhal Sol (2.5 mg/3 mL) UD ONE (11:41)
--- NOTE | 2017-11-22 11:42 | C.PDOC ---
History Of Present Illness 57 yo female w/PMHx of asthma come in for evaluation of cold sx for past 4 days associated with nasal congestion, productive cough with clear sputum. Since yesterday, developed chest tightness, wheezing. Otherwise, pt denies high fever , chills, headache, dizziness, drooling, neck pain, CP, dyspnea, diaphoresis, abd. pain, V/D, back pain, UTI sx. Ambulate to Ed for evaluation, not in nay apparent distress. Time Seen by Provider: 11/22/17 11:21 Chief Complaint (Nursing): Cough, Cold, Congestion History Per: Patient Past Medical History Reviewed: Historical Data, Nursing Documentation, Vital Signs Vital Signs: Last Vital Signs Temp 98.1 F 11/22/17 11:09 Pulse 90 11/22/17 11:09 Resp 16 11/22/17 11:09 BP 145/89 11/22/17 11:09 Pulse Ox 97 11/22/17 11:50 - Medical History PMH: Arthritis (KNEES), Asthma, Bronchitis, COPD (MILD), Diabetes (Pt did not report this to Un[facility].), Diverticulitis, HTN, Hypercholesterolemia, Hyperlipidemia Denies: Hepatitis, HIV, Seizures, Sexually Transmitted Disease Comment Only: Anxiety ("NERVES") Surgical History: Endoscopy - [facility] Procedures GROUP PSYCHOTHERAPY (09/03/17) INDIV PSYCHOTHERAPY FOR SUBSTANCE ABUSE TREATMENT, SUPPORT (09/03/17) INDIV PSYCHOTHERAPY FOR SUBSTANCE ABUSE, PSYCHOEDUCATION (09/03/17) INDIVIDUAL PSYCHOTHERAPY, SUPPORTIVE (09/03/17) MEDICATION MANAGEMENT (09/03/17) MEDS MGMT FOR SUBSTANCE ABUSE TREATMENT, OTH REPL MED (09/03/17) Family History: States: Unknown Family Hx, Hypertension - Social History Hx Tobacco Use: No Hx Alcohol Use: No Hx Substance Use: Yes - Immunization History Hx Tetanus Toxoid Vaccination: No Hx Influenza Vaccination: Yes Hx Pneumococcal Vaccination: No Review Of Systems Except As Marked, All Systems Reviewed And Found Negative. Constitutional: Negative for: Fever, Chills ENT: Positive for: Nose Discharge, Nose Congestion. Negative for: Ear Discharge , Throat Pain, Throat Swelling Cardiovascular: Negative for: Chest Pain, Palpitations Respiratory: Positive for: Cough, Wheezing. Negative for: Shortness of Breath Gastrointestinal: Negative for: Nausea, Vomiting, Abdominal Pain, Diarrhea Genitourinary: Negative for: Dysuria Skin: Negative for: Rash Neurological: Negative for: Altered Mental Status, Headache, Dizziness Physical Exam - Physical Exam Appears: Well, Non-toxic, No Acute Distress Skin: Normal Color, Warm, Dry, No Rash Head: Normacephalic Eye(s): bilateral: PERRL Nose: No Flaring, Discharge (B/L nasal congestion with clear rhinorrhea) Throat: No Erythema, No Drooling Neck: Trachea Midline, Supple Cardiovascular: Rhythm Regular Respiratory: No Decreased Breath Sounds, No Accessory Muscle Use, No Stridor, Wheezing (scatteerd bibasilar wheezing exp) Gastrointestinal/Abdominal: Soft, No Tenderness, No Distention, No Guarding Extremity: Normal ROM, No Deformity, No Swelling Neurological/Psych: Oriented x3, Normal Speech ED Course And Treatment O2 Sat by Pulse Oximetry: 97 Pulse Ox Interpretation: Normal - Radiology CXR: Interpreted by Me, Viewed By Me CXR Interpretation: Yes: No Acute Disease Progress Note: On re-eval, pt is afebrile, hemodynamicaly stable. non-toxic. PulseOx 97% RA. ENT: no acute findings. neck: Supple, (-) JVD. Lungs: CTA B/L , Bs equal B/L. Abd: benign. neuorlogicaly intact. CXR review-normal study. Pt has clinical findings c/w acute bronchitis, asthma exacerbation. Pt advised. ref. to f/u with PMD in 2-3 days for re-eavl. return to ED if any worsening or new changes. Disposition Counseled Patient/Family Regarding: Studies Performed, Diagnosis, Need For Followup, Rx Given - Disposition Referrals: Anil Sun MD [Staff Provider] - Disposition: HOME/ ROUTINE Disposition Time: 11:50 Condition: STABLE Additional Instructions: Use inhaler twice daily take medication as prescribed Follow up with PMD in 2-3 days for re-evaluation. return to ED if any worsening or new changes. Prescriptions: Albuterol HFA [Ventolin HFA 90 mcg/actuation (8 g)] 1 puff IH Q6 #1 inhaler Azithromycin [Zithromax] 250 mg PO DAILY #4 tab Benzonatate [Tessalon Perle] 100 mg PO TID #14 capsule Prednisone [Deltasone] 40 mg PO DAILY #6 tablet Instructions: Asthma in Adults, Acute Bronchitis Forms: [facility] [facility] (Puerto Rican) - Clinical Impression Clinical Impression: Bronchitis, Asthma
[2017-11-22 12:34] VITALS: BP 155/85; PULSE 92; RESP 20; TEMP 99.1; O2SAT 96
--- NOTE | 2017-11-22 12:39 | RAD ---
HISTORY: Cough COMPARISON: 07/24/2017 TECHNIQUE: Chest PA and lateral FINDINGS: LUNGS: No active pulmonary disease. PLEURA: No significant pleural effusion identified. No pneumothorax apparent. CARDIOVASCULAR: Normal. OSSEOUS STRUCTURES: No significant abnormalities. VISUALIZED UPPER ABDOMEN: Normal. OTHER FINDINGS: None. IMPRESSION: No active disease.
== END 2017-11-22 12:47 | disposition home or self-care (01) ==
LOC: C.ER 11:06
DX: J45.901 Unspecified asthma with (acute) exacerbation (principal)

== ENCOUNTER 2018-03-13 09:18 | Emergency (ER) | payer MEDICAID, OTHER ==
[2018-03-13 09:18] VITALS: BMI 30.6
--- NOTE | 2018-03-13 09:54 | C.PDOC ---
History Of Present Illness 57 yo female, presnts with dysuria x 1 week, feels similar to previous uti. no other complaints. no abd pain no fever no n/v/d Time Seen by Provider: 03/13/18 09:48 Chief Complaint (Nursing): Female Genitourinary Past Medical History Reviewed: Historical Data, Nursing Documentation, Vital Signs Vital Signs: Last Vital Signs Temp 98.2 F 03/13/18 09:36 Pulse 87 03/13/18 09:36 Resp 19 03/13/18 09:36 BP 157/98 H 03/13/18 09:36 Pulse Ox 98 03/13/18 10:52 - Medical History PMH: Arthritis (KNEES), Asthma, Bronchitis, COPD (MILD), Diabetes (Pt did not report this to [facility].), Diverticulitis, HTN, Hypercholesterolemia, Hyperlipidemia Denies: Hepatitis, HIV, Seizures, Sexually Transmitted Disease Comment Only: Anxiety ("NERVES") Surgical History: Endoscopy - [facility] Procedures GROUP PSYCHOTHERAPY (09/03/17) INDIV PSYCHOTHERAPY FOR SUBSTANCE ABUSE TREATMENT, SUPPORT (09/03/17) INDIV PSYCHOTHERAPY FOR SUBSTANCE ABUSE, PSYCHOEDUCATION (09/03/17) INDIVIDUAL PSYCHOTHERAPY, SUPPORTIVE (09/03/17) MEDICATION MANAGEMENT (09/03/17) MEDS MGMT FOR SUBSTANCE ABUSE TREATMENT, OTH REPL MED (09/03/17) Family History: States: Unknown Family Hx, Hypertension - Social History Hx Tobacco Use: No Hx Alcohol Use: No Hx Substance Use: Yes - Immunization History Hx Tetanus Toxoid Vaccination: No Hx Influenza Vaccination: Yes Hx Pneumococcal Vaccination: No Review Of Systems Except As Marked, All Systems Reviewed And Found Negative. Constitutional: Negative for: Fever, Chills Gastrointestinal: Negative for: Nausea, Vomiting, Abdominal Pain Genitourinary: Positive for: Dysuria Physical Exam - Physical Exam Appears: Well, No Acute Distress Skin: Normal Color, Warm, Dry Eye(s): bilateral: Normal Inspection, PERRL, EOMI Nose: Normal Throat: Normal Neck: Normal Cardiovascular: Rhythm Regular Respiratory: Normal Breath Sounds Gastrointestinal/Abdominal: Normal Exam, No Soft, No Tenderness, No Guarding, No Rebound Back: Normal Inspection Extremity: Normal ROM ED Course And Treatment - Laboratory Results Result Diagrams: 03/13/18 11:43 03/13/18 11:43 O2 Sat by Pulse Oximetry: 98 Medical Decision Making Medical Decision Making: r/o uti urine neg. upon dc, pt tearful, states diffuse abd pain. labs and ct later show constipation. pain resovled in er, pt ambulating around er in nad. Disposition - Disposition Referrals: [facility] [Outside] [facility] [Outside] Robert Kennedy Jr., MD [Staff Provider] - Yann Melgoza MD [Staff Provider] - Disposition: HOME/ ROUTINE Disposition Time: 15:00 Condition: STABLE Additional Instructions: follow up with specialist. return to er with worsening symptoms or concerns. Instructions: Acute Abdomen (Belly Pain), Dysuria, Adult (DC) Forms: [facility] [facility] (Maltese) - Clinical Impression Clinical Impression: Abdominal pain, Dysuria
[2018-03-13 11:00] LABS: SQUAMOUS EPITHIAL 2 /hpf (0-5); URINE BILIRUBIN NEGATIVE (NEGATIVE); URINE BLOOD 1+ (NEGATIVE); URINE CLARITY Clear (Clear); URINE COLOR Yellow (YELLOW); URINE GLUCOSE (UA) NORMAL (Normal); URINE LEUKOCYTE ESTERASE NEG Leu/uL (Negative); URINE PROTEIN NEGATIVE (NEGATIVE); URINE UROBILINOGEN NORMAL mg/dL (0.2-1.0)
[2018-03-13] MEDS ORDERED: Sodium Chloride 0.9% 1,000 ML IV ONE (11:30)
[2018-03-13] MEDS ORDERED: Sodium Chloride 0.45% 1,000 ML IV ONE (11:44)
[2018-03-13 11:46] LABS: BASO % 0.9 % (0.0-2.0); EOS # 0.1 K/uL (0.0-0.7); EOS % 1.8 % (0.0-4.0); HEMOGLOBIN 12.9 g/dL (11.0-16.0); LYMPH # 1.6 K/uL (1.0-4.3); LYMPH % 33.3 % (20.0-40.0); MEAN CELL VOLUME 85.9 fL (81.0-99.0); MEAN CORPUSCULAR HEMOGLOBIN 29.4 pg (27.0-31.0); MEAN CORPUSCULAR HGB CONC 34.3 g/dL (33.0-37.0); MEAN PLATELET VOLUME 8.3 fL (7.2-11.7); MONO # 0.5 K/uL (0.0-0.8); MONO % 9.3 % (0.0-10.0); NEUT # 2.7 K/uL (1.8-7.0); NEUT % 54.7 % (50.0-75.0); RBC 4.37 Mil/uL (3.80-5.20); RED CELL DISTRIBUTION WIDTH 14.9 % (11.5-14.5); WHITE BLOOD COUNT 4.9 K/uL (4.8-10.8)
[2018-03-13 11:58] LABS: INR 1.1; PROTHROMBIN TIME 11.6 SECONDS (9.7-12.2)
[2018-03-13 12:10] LABS: ALB/GLOB RATIO 1.3 (1.0-2.1); ALBUMIN 4.8 g/dL (3.5-5.0); ALT/SGPT 31 U/L (9-52); AST/SGOT 23 U/L (14-36); BLOOD UREA NITROGEN 18 mg/dL (7-17); CALCIUM 9.7 mg/dl (8.6-10.4); GFR NON-AFRICAN AMERICAN > 60; LIPASE 106 U/L (23-300)
[2018-03-13] MEDS ORDERED: Iodixanol 320 MG/ML 100 ML BOTTLE IV ONE (14:11)
--- NOTE | 2018-03-13 15:04 | CT ---
Date of service: 03/13/2018 PROCEDURE: CT Abdomen and Pelvis with contrast HISTORY: lower abd pain COMPARISON: CT abdomen pelvis with contrast performed 11/08/15 TECHNIQUE: Contrast dose: 100 mL Visipaque IV Radiation dose: Total exam DLP = 685.28 mGy-cm. This CT exam was performed using one or more of the following dose reduction techniques: Automated exposure control, adjustment of the mA and/or kV according to patient size, and/or use of iterative reconstruction technique. FINDINGS: LOWER THORAX: No visible consolidation, pleural effusion, or pneumothorax. LIVER: Unremarkable. GALLBLADDER AND BILE DUCTS: Unremarkable. PANCREAS: Unremarkable. SPLEEN: Unremarkable. ADRENALS: Unremarkable. KIDNEYS AND URETERS: The kidneys enhance symmetrically. No hydronephrosis or obstructing calculus identified. VASCULATURE: No aortic aneurysm. BOWEL: Stomach is nondistended. Lack of oral contrast limits evaluation for bowel pathology. Bowel loops appear within normal limits of caliber without evidence of obstruction. Mild constipation. APPENDIX: No secondary signs of acute appendicitis. PERITONEUM: No significant free fluid. No definite free air. LYMPH NODES: No bulky adenopathy identified. BLADDER: Unremarkable. REPRODUCTIVE: The uterus is present. Calcification re-identified at the level the presumed right ovary. BONES: Mild degenerative changes. OTHER FINDINGS: None. IMPRESSION: Mild constipation. Additional findings as above.
[2018-03-13 15:24] VITALS: BP 152/89; PULSE 84; RESP 18; TEMP 98.5; O2SAT 97
== END 2018-03-13 15:24 | disposition home or self-care (01) ==
LOC: C.ER 09:18
DX: R30.0 Dysuria (principal); R10.9 Unspecified abdominal pain
CPT/HCPCS: 74177; 80053; 81001; 83690; 85025; 85610; 85730; 96361; 96374; 99285; J1885; J7030; Q9967

== ENCOUNTER 2018-10-12 16:20 | Emergency (ER) | payer MEDICAID, OTHER ==
[2018-10-12 16:20] VITALS: BMI 30.6
[2018-10-12 16:28] VITALS: BP 129/86; PULSE 82; RESP 20; TEMP 98.2; O2SAT 99
[2018-10-12] MEDS ORDERED: Albuterol-Ipratrop 3 mg / 0.5 (3 ml) UD INH STA (17:09)
[2018-10-12] MEDS ORDERED: Albuterol-Ipratrop 3 mg / 0.5 (3 ml) UD ONE (17:20)
--- NOTE | 2018-10-12 17:30 | RAD ---
Date of service: 10/12/2018 HISTORY: cough/asthma COMPARISON: Chest radiograph dated 11/22/2017. TECHNIQUE: Chest PA and lateral views FINDINGS: LUNGS: No active pulmonary disease. PLEURA: Stable eventration of the right hemidiaphragm. No significant pleural effusion identified. No pneumothorax apparent. CARDIOVASCULAR: Aortic atherosclerotic calcifications. Cardiomediastinal silhouette stably enlarged. OSSEOUS STRUCTURES: Changed. VISUALIZED UPPER ABDOMEN: Normal. OTHER FINDINGS: None. IMPRESSION: No active disease.
--- NOTE | 2018-10-12 17:45 | C.PDOC ---
History Of Present Illness 58 year old female with PMHx of asthma presents to the ED complaining of productive cough for 4 days. Reports she has been using inhaler infrequently and did one Neb treatment today. However, she continues to have cough with shortness of breath. Denies any fever, chills, headache, chest pain, nausea, vomiting, sick contacts. Chief Complaint (Nursing): Cough, Cold, Congestion History Per: Patient History/Exam Limitations: no limitations Onset/Duration Of Symptoms: Days Current Symptoms Are (Timing): Still Present Associated Symptoms: Cough - Asthma History Medication Use: PRN Past Medical History Reviewed: Historical Data, Nursing Documentation, Vital Signs Vital Signs: Last Vital Signs Temp 98.2 F 10/12/18 16:23 Pulse 82 10/12/18 16:23 Resp 20 10/12/18 16:23 BP 129/86 10/12/18 16:23 Pulse Ox 99 10/12/18 16:23 - Medical History PMH: Arthritis (KNEES), Asthma, Bronchitis, COPD (MILD), Diabetes (Pt did not report this to Undersigned.), Diverticulitis, HTN, Hypercholesterolemia, Hyperlipidemia Denies: Hepatitis, HIV, Seizures, Sexually Transmitted Disease Comment Only: Anxiety ("NERVES") Surgical History: Endoscopy - [facility] Procedures GROUP PSYCHOTHERAPY (09/03/17) INDIV PSYCHOTHERAPY FOR SUBSTANCE ABUSE TREATMENT, SUPPORT (09/03/17) INDIV PSYCHOTHERAPY FOR SUBSTANCE ABUSE, PSYCHOEDUCATION (09/03/17) INDIVIDUAL PSYCHOTHERAPY, SUPPORTIVE (09/03/17) MEDICATION MANAGEMENT (09/03/17) MEDS MGMT FOR SUBSTANCE ABUSE TREATMENT, OTH REPL MED (09/03/17) Family History: States: Hypertension - Social History Hx Tobacco Use: No Hx Alcohol Use: No Hx Substance Use: No - Immunization History Hx Tetanus Toxoid Vaccination: No Hx Influenza Vaccination: Yes Hx Pneumococcal Vaccination: No Review Of Systems Constitutional: Negative for: Fever, Chills Cardiovascular: Negative for: Chest Pain Respiratory: Positive for: Cough, Shortness of Breath Gastrointestinal: Negative for: Nausea, Vomiting Neurological: Negative for: Headache Physical Exam - Physical Exam Appears: Non-toxic, No Acute Distress Skin: Warm, Dry, No Rash Head: Normacephalic Eye(s): bilateral: Normal Inspection Nose: Normal Oral Mucosa: Moist Neck: Supple Chest: Symmetrical Cardiovascular: Rhythm Regular Respiratory: Normal Breath Sounds, No Accessory Muscle Use, No Wheezing Neurological/Psych: Oriented x3, Normal Speech Gait: Steady ED Course And Treatment O2 Sat by Pulse Oximetry: 99 (RA) Pulse Ox Interpretation: Normal - Other Rad CXR X-Ray: Viewed By Me, Read By Radiologist Interpretation: Accession No. : [id number]. Patient Name / ID : YOMI [id number] / [id number]. Exam Date : 10/12/2018 17:10:22 ( Approved ). Study Comment : Sex / Age : F / 58Y. Creator : Navid De Oliveira MD. Dictator : Navid De Oliveira MD. Folder Gluer Operator : Physical Therapy Aide : Navid De Oliveira MD. Approver2 : Report Date : 10/12/2018 17:26:35. My Comment : . Date of service: 10/12/2018. HISTORY: cough/asthma. COMPARISON: Chest radiograph dated 11/22/2017. TECHNIQUE: Chest PA and lateral views. FINDINGS: LUNGS: No active pulmonary disease. PLEURA: Stable eventration of the right hemidiaphragm. No significant pleural effusion identified. No pneumothorax apparent. CARDIOVASCULAR: Aortic atherosclerotic calcifications. Cardiomediastinal silhouette stably enlarged. OSSEOUS STRUCTURES: Changed. VISUALIZED UPPER ABDOMEN: Normal. OTHER FINDINGS: None. IMPRESSION: No active disease. Medical Decision Making Medical Decision Making: Plan - Neb treatment - CXR - no active disease - Tessalon Perles 100mg PO On reassessment, patient is resting comfortably with no wheezing, chest pain, or retractions. Patient was advised to follow up with physician/clinic in 1-2 days and return to ED if symptoms worsen or persist. Patient verbalizes understanding and is in agreement with plan. Patient is stable for discharge. Disposition Counseled Patient/Family Regarding: Studies Performed, Diagnosis, Need For Followup, Rx Given - Disposition Referrals: Anil Sun MD [Staff Provider] - Disposition: HOME/ ROUTINE Disposition Time: 17:45 Condition: STABLE Additional Instructions: Continue Tessalon Perles three times a day as needed for cough Rest and Hydration use inhaler as needed for asthma as instructed Follow up with PMD in 1-2 Return to the ED if symptoms worsen Prescriptions: Benzonatate [Tessalon Perles] 100 mg PO TID #30 sgl Instructions: Asthma, Adult (DC), Cough, Adult (DC), Avoiding Asthma Triggers, Rescue vs Controller Inhalers Forms: [employer] (Greek) - Clinical Impression Clinical Impression: Asthma, Cough - PA / [employer] / Resident Statement MD/DO has reviewed & agrees with the documentation as recorded. - Scribe Statement The provider has reviewed the documentation as recorded by the Scribe Margaret Beaver All medical record entries made by the Zionibwillie were at my direction and personally dictated by me. I have reviewed the chart and agree that the record accurately reflects my personal performance of the history, physical exam, medical decision making, and the department course for this patient. I have also personally directed, reviewed, and agree with the discharge instructions and disposition.
== END 2018-10-12 18:11 | disposition home or self-care (01) ==
LOC: C.ER 16:20
DX: J45.909 Unspecified asthma, uncomplicated (principal); R05 Cough

== ENCOUNTER 2018-11-07 15:24 | Outpatient (CLI) | payer OTHER | END 2018-11-07 15:25 | disposition home or self-care (01) | LOC: C.LAB 15:24 | DX: F31.61 Bipolar disorder, current episode mixed, mild (principal) ==